=== PATIENT | female | born 1945 | race Caucasian/White ===

== ENCOUNTER 2017-07-18 11:55 | Day surgery (SDC) | payer MEDICARE ==
[2017-07-17 15:38] VITALS: BMI 28.9
[2017-07-18] MEDS ORDERED: Midazolam HCl 2 mg/2 ml Vial ONE (13:36)
[2017-07-18] MEDS ORDERED: Gadobenate Dimeglumine 529 MG/1 ML (20ML VIAL) ONE (14:35)
[2017-07-18] MEDS ORDERED: Fentanyl 100 MCG/2 ML VIAL ONE (15:55)
--- NOTE | 2017-07-18 16:00 | MRI ---
MRI LUMBAR SPINE WITH AND WITHOUT GADOLINIUM CONTRAST 07/18/17 HISTORY: Low back pain. Worsening right leg radiculopathy. Prior surgery. FINDINGS: The conus medullaris has a normal appearance. There is desiccation of all of the intervertebral discs . T12-L1, L1-2, L2-3: There is minimal disc bulge. Osteophytosis involves each facet. The central canal and neural foramina are patent. L3-4: Minimal disc bulge is present. The thecal sac remains patent. There is mild stenosis of each ne ural foramen. L4-5: Disc space narrowing and minimal degenerative spondylolisthesis are apparent. Posterior disc bu lge, along with facet joint hypertrophy and ligamentous thickening, result in moderate stenosis of th e central canal and each neural foramen, right greater than left. L5-S1: Minimal disc bulge is present. Osteophytosis involves the facet. There is mild stenosis of the left neural foramen. IMPRESSION: Multilevel degenerative changes as detailed above, most pronounced at the L4-5 level. Stenosis is gre atest at the right neural foramen. Clinical correlation regarding the L4 dermatome is required. POS: YOEL
== END 2017-07-18 17:07 | disposition home or self-care (01) ==
LOC: SDC/OP 11:55
PROVIDERS: ATTEND Surgery
DX: M54.5 Low back pain (principal); Z88.5 Allergy status to narcotic agent; Z88.8 Allergy status to other drugs, medicaments and biological substances; Z91.013 Allergy to seafood; Z88.1 Allergy status to other antibiotic agents; Z98.890 Other specified postprocedural states
CPT/HCPCS: 36415; 72158; 82565; 96374; A9579; J2250; J3010

== ENCOUNTER 2017-11-10 10:54 | Outpatient (CLI) | payer MEDICARE ==
[2017-11-10 11:49] LABS: #Eosinphils 0.2 thou/uL (0.0-0.7); #Lymphocytes 2.8 thou/uL (1.20-3.40); #Monocytes 0.4 thou/uL (0.11-0.59); #Neutrophils 7.8 thou/uL (1.40-6.50); %Basophils 0.3 % (0.0-1.0); %Eosinophils 1.4 % (0.0-10.0); %Lymphocytes 24.9 % (21.0-51.0); %Monocytes 3.8 % (0.0-10.0); %Neutrophils 69.6 % (42.0-75.0); Hemoglobin 14.9 g/dL (12.0-16.0); Mean Corpuscular HGB CONC 32.3 g/dL (32.0-36.0); Mean Corpuscular Hemoglobin 27.1 pg (27.0-31.0); Mean Corpuscular Volume 83.7 fl (81.0-99.0); Mean Platelet Volume 8.2 fL (7.4-10.4); Platelet Count 342 thou/uL (130-400); RBC Distribution Width 12.2 % (11.5-14.5); White Blood Cell (WBC) Count 11.2 thou/uL (4.8-10.8)
[2017-11-10 11:56] LABS: INR-International Normal Ratio 1.1; PTT 36.3 SEC (22.9-36.1); Prothrombin Time 13.9 SEC (12.0-14.7)
[2017-11-10 12:12] LABS: Anion Gap 14 mmol/L (10-20); BUN (Urea Nitrogen) 11 mg/dL (9.8-20.1); Calc. Creatinine Clearance 0 mL/min (70-130); Carbon Dioxide 26 mmol/L (23-31); Chloride 100 mmol/L (98-107); Estimated GFR-MDRD 56; Glucose 134 mg/dL (83-110); Potassium 3.7 mmol/L (3.5-5.1); Sodium 136 mmol/L (136-145)
== END 2017-11-10 10:55 | disposition home or self-care (01) ==
LOC: LABBT 10:54
PROVIDERS: ATTEND Surgery
DX: Z01.818 Encounter for other preprocedural examination (principal); M48.061 Spinal stenosis, lumbar region without neurogenic claudication; M51.16 Intervertebral disc disorders with radiculopathy, lumbar region
CPT/HCPCS: 80048; 85025; 85610; 85730; 93005; 93010

== ENCOUNTER 2017-11-14 10:57 | Day surgery (SDC) | payer MEDICARE, OTHER ==
[2017-11-10 11:27] VITALS: BMI 27.4
[2017-11-14] MEDS ORDERED: Levofloxacin 500 mg/D5W 100 ml Premix Bag ONE (11:42)
[2017-11-14] MEDS ORDERED: Clindamycin/D5W 900 mg/50 ml Premix Bag ONE (11:42)
[2017-11-14] MEDS ORDERED: Bacitracin Zinc Ointment 30 gm TUBE ONE (13:52)
[2017-11-14] MEDS ORDERED: Sodium Chloride 0.9% 10 ML ONE (13:52)
[2017-11-14] MEDS ORDERED: Thrombin 5000 UNITS/5 ML VIAL ONE (13:52)
[2017-11-14] MEDS ORDERED: Fentanyl 100 MCG/2 ML VIAL ONE ×4 (14:01→17:17)
[2017-11-14] MEDS ORDERED: Meperidine HCl/PF 25 MG/ML VIAL SLOW IVP PRN (15:32)
[2017-11-14] MEDS ORDERED: Promethazine HCl 25 MG/ML VIAL SLOW IVP PRN (15:32)
[2017-11-14] MEDS ORDERED: Ondansetron HCl/PF 4 MG/2 ML Vial IVP PRN (15:32)
--- NOTE | 2017-11-14 16:01 | OP ---
OR: 12 WOUND TYPE: Type 1 wound. SURGEON: Adi Chapin M.D. MEDICAL COMMUNICATION SPECIALIST: Nitesh Hill PA-C. PREPROCEDURE DIAGNOSES: Recurrent lumbar stenosis with history of L4-L5 laminectomy, now with L3-L4 and L4-L5 stenosis with low back and leg pain. POSTPROCEDURE DIAGNOSES: Recurrent lumbar stenosis with history of L4-L5 laminectomy, now with L3-L4 and L4-L5 stenosis with low back and leg pain. PROCEDURES PERFORMED: 1. L3-L4 laminectomy, partial facetectomy, and foraminotomies. 2. Bilateral revision L4-L5 hemilaminotomies, foraminotomies and partial facetectomies with disk spa ce exploration, right L4-L5. DESCRIPTION OF PROCEDURE: After informed consent was obtained from the patient, the patient brought to OR 12. Proper patient pause and the identification was carried out. The patient was positioned p mai on the OR table and all appropriate points were padded. We identified the L3, L4, L5 dorsal spi alfredo and lamina. This region was sterilely cleansed, prepared, and draped. Proper patient pause and identification was carried out. The wound was then opened in a combination of sharp column monopolar and blunt dissection. The L3, L4, L5 dorsal spines lamina were exposed. Exuberant scar tissue was identified in the L4-L5 segment. As expected, we had excellent exposure. However, an L3, L4, L3-L4 laminectomies, partial facetectomies and foraminotomies were performed and bilateral revision L4-L5 h emilaminotomies, foraminotomies with exploration of the disk space on the right side L4-L5 was perfor med. However, further we had achieved adequate decompression of the L4 and L5 nerve roots and did no t need to remove any disk material. We were pleased with our decompression and we had ample freedom of the L3, L4, L5 nerve roots bilaterally and the spinal canal and in the common dural tube. Copious irrigation occurred throughout Hemostasis was maximized. The wound was copiously irrigated and clos ed in anatomic layers. The patient then emerged from anesthesia.
[2017-11-14] MEDS ORDERED: PROPOFOL 200 MG/20 ML VIAL ONE (16:08)
[2017-11-14] MEDS ORDERED: Ondansetron HCl/PF 4 MG/2 ML Vial ONE (16:08)
[2017-11-14] MEDS ORDERED: PHENYLEPHRINE-NS 100 MCG/ML 10 ML SYRINGE ONE (16:08)
[2017-11-14] MEDS ORDERED: Lidocaine 1% PF 5 ML VIAL ONE (16:08)
[2017-11-14] MEDS ORDERED: Glycopyrrolate 0.2 MG/ML 5 ML SYRINGE ONE (16:08)
[2017-11-14] MEDS ORDERED: Dexamethasone 20 MG/5 ML VIAL ONE (16:08)
[2017-11-14] MEDS ORDERED: Morphine 4 MG/ML VIAL SLOW IVP PRN (16:17)
[2017-11-14] MEDS ORDERED: Fleet Enema 133 ML BOT PR PRN (16:17)
[2017-11-14] MEDS ORDERED: Mag-Al 1200 mg/1200 mg/30 ML UDCUP PO PRN (16:17)
[2017-11-14] MEDS ORDERED: Acetaminophen 325 MG TAB PO PRN (16:17)
[2017-11-14] MEDS ORDERED: Promethazine HCl 25 MG/ML VIAL IM PRN (16:17)
[2017-11-14] MEDS ORDERED: tiZANidine HCl 4 MG TAB PO PRN (16:17)
[2017-11-14] MEDS ORDERED: Bisacodyl 10 MG SUPP PR PRN (16:17)
[2017-11-14] MEDS ORDERED: traMADol HCl 50 MG TAB PO PRN (16:17)
[2017-11-14] MEDS ORDERED: Milk Of Magnesia 30 ML UDCUP PO PRN (16:17)
[2017-11-14] MEDS ORDERED: Polyethylene Glycol OPTH DROP 15 ML BOT EA EYE PRN (16:21)
[2017-11-14] MEDS ORDERED: fentaNYL 50 mcg/hour Patch TD SCH (16:30)
[2017-11-14] MEDS: Sodium Chloride 0.9% 1,000 ML IV SCH (18:17)
[2017-11-14] MEDS: Ursodiol 300 MG CAP PO SCH (18:17)
[2017-11-14] MEDS: HYDROcodone/Acetaminophen 7.5/325 mg Tablet PO PRN (20:55)
[2017-11-15] MEDS: HYDROcodone/Acetaminophen 7.5/325 mg Tablet PO PRN ×2 (00:51→08:20)
[2017-11-15] MEDS: Sodium Chloride 0.9% 1,000 ML IV SCH (05:09)
[2017-11-15] MEDS ORDERED: Levothyroxine Sodium 112 MCG TAB PO SCH (06:00)
[2017-11-15] MEDS ORDERED: Levothyroxine Sodium 25 MCG TAB PO SCH (06:00)
[2017-11-15 08:52] VITALS: TEMP 97.8
[2017-11-15] MEDS ORDERED: Valsartan 80 MG TAB PO SCH (09:00)
[2017-11-15] MEDS ORDERED: Non-Formulary Item 1 EACH (Levothyroxine Sodium [Synthroid] 137 MCG) PO SCH (09:00)
[2017-11-15] MEDS ORDERED: Amlodipine 10 MG TAB PO SCH (09:00)
[2017-11-15] MEDS: Ursodiol 300 MG CAP PO SCH (09:00)
[2017-11-15 10:27] VITALS: BP 105/65
--- NOTE | 2017-11-15 11:05 | DIS ---
DATE OF ADMISSION: 11/14/2017 DATE OF DISCHARGE: 11/15/2017 This is Nitesh Hill PA-C dictating for Dr. Adi Chapin. DISCHARGE DIAGNOSES: 1. Lumbar spinal stenosis. 2. Low back pain with lumbar radiculopathy. HOSPITAL COURSE: Ms. Garber was admitted on 11/14/2017 to undergo L3-L4 laminectomy with L4-L5 revisi on bilateral hemilaminotomies, foraminotomies with Dr. Chapin. The patient tolerated the procedure w ell, and it was without complication. She stayed one overnight and her pain was well controlled. Po stoperatively, the patient met criteria for discharge and at the time of discharge, the patient was p leased with her outcome postoperatively. Appropriate outpatient followup appointments were scheduled and patient education was given. She understood to call the office with any additional questions or concerns, otherwise. She is ready for dismissal today.
== END 2017-11-15 10:25 | disposition home or self-care (01) ==
LOC: SDC 10:57 → SURG A 16:17 → SDC 11-15 10:25
PROVIDERS: ATTEND Surgery
PROC: 01NB0ZZ Release Lumbar Nerve, Open Approach (ICD-10-PCS; principal; 2017-11-14)
DX: M48.061 Spinal stenosis, lumbar region without neurogenic claudication (principal); Z88.1 Allergy status to other antibiotic agents; Z88.5 Allergy status to narcotic agent; Z88.8 Allergy status to other drugs, medicaments and biological substances; Z79.899 Other long term (current) drug therapy
CPT/HCPCS: 76001; 96374; A4216; J0131; J1100; J1956; J2001; J2270; J2405; J2704; J3010; J3370; J3490

== ENCOUNTER 2018-10-10 21:14 | Emergency (ER) | payer MEDICARE ==
[2018-10-10] MEDS ORDERED: Morphine 4 MG/ML VIAL ONE (23:10)
== END 2018-10-10 23:39 | disposition home or self-care (01) ==
LOC: ERS 21:14
DX: G89.29 Other chronic pain (principal); M54.5 Low back pain; F32.9 Major depressive disorder, single episode, unspecified; I10 Essential (primary) hypertension; Z79.899 Other long term (current) drug therapy
CPT/HCPCS: 96372; J2270

== ENCOUNTER 2018-11-14 18:52 | Emergency (ER) | payer MEDICARE ==
[2018-11-14] MEDS ORDERED: Morphine 4 MG/ML VIAL ONE (19:46)
[2018-11-14] MEDS ORDERED: Ketorolac Tromethamine 30 MG/ML VIAL ONE (19:46)
== END 2018-11-14 20:35 | disposition home or self-care (01) ==
LOC: ERS 18:52
DX: M54.5 Low back pain (principal); G89.29 Other chronic pain; F32.9 Major depressive disorder, single episode, unspecified; I10 Essential (primary) hypertension; Z79.899 Other long term (current) drug therapy
CPT/HCPCS: 96372; J1885; J2270

== ENCOUNTER 2018-12-21 12:10 | Day surgery (SDC) | payer MEDICARE ==
[2018-12-07 09:10] VITALS: BMI 27.8
[2018-12-21] MEDS ORDERED: Fentanyl 100 MCG/2 ML VIAL ONE ×2 (14:26→15:31)
--- NOTE | 2018-12-21 17:10 | MRI ---
MRI LUMBAR SPINE WITH AND WITHOUT CONTRAST: Date: 12/21/18 INDICATION: History of spinal stenosis and spinal surgery. Back and bilateral leg pain with numbness. CONTRAST: 15 mL MultiHance. COMPARISON: Prior MRI lumbar spine dated 07/18/17. FINDINGS: Since the comparison examination, there has been interval performance of laminectomy at L4 and L5. Th ere is some mild residual T2 hyperintensity within the paraspinal musculature near this region. No la rge drainable fluid collection is grossly evident. There is some mild enhancing scar overlying the la minectomy sites. Visualized retroperitoneum and paravertebral soft tissues appear within normal limits. Conus is seen to terminate at T12-L1. There is Grade I anterolisthesis of L4 on L5 which is stable. At L5-S1, there is moderate left and mild right facet joint degenerative change that is stable to the prior exam. There is a mild broad based bulge. There is mild left neural foraminal narrowing, which is stable. At L4-5, there is a residual broad based bulge with severe facet joint degenerative change. There is improvement in the central canal narrowing due to the laminectomy at L4-5. The loss of disc space hei ght in addition to the residual bulge and facet hypertrophy induces moderate bilateral neural foramin al narrowing which is stable. At L3-4, there is a broad based bulge and facet hypertrophy inducing mild bilateral neural foraminal narrowing. This is stable to the prior exam. At L2-3, there is a broad based bulge and facet hypertrophy, but no appreciable central canal or neur al foraminal narrowing. At L1-2, there is no appreciable central canal or neural foraminal narrowing. There is a mild broad b ased bulge. At T12-L1, there is no appreciable central canal or neural foraminal narrowing. No suspicious enhance ment is demonstrated. IMPRESSION: 1. Interval postsurgical change of laminectomies at L4 and L5 with improvement in the central canal narrowing seen at L4-5. There is residual moderate neural foraminal narrowing at L4-5 that is stable. 2. Stable left L5-S1 mild neural foraminal narrowing. POS: REILLY
== END 2018-12-21 16:35 | disposition home or self-care (01) ==
LOC: SDC/OP 12:10
PROVIDERS: ATTEND Nurse Practitioner Family
DX: M48.061 Spinal stenosis, lumbar region without neurogenic claudication (principal); M48.07 Spinal stenosis, lumbosacral region; Z88.5 Allergy status to narcotic agent; Z91.018 Allergy to other foods; Z88.1 Allergy status to other antibiotic agents; Z88.8 Allergy status to other drugs, medicaments and biological substances; Z79.891 Long term (current) use of opiate analgesic; Z79.899 Other long term (current) drug therapy
CPT/HCPCS: 72158; 82565; J3010

== ENCOUNTER 2019-04-07 19:39 | Emergency (ER) | payer MEDICARE ==
[2019-04-07] MEDS ORDERED: Ketorolac Tromethamine 60 MG/2 ML VIAL ONE (20:16)
== END 2019-04-07 21:45 | disposition home or self-care (01) ==
LOC: ERS 19:39
DX: R51 Headache (principal); M54.5 Low back pain; I10 Essential (primary) hypertension; F32.9 Major depressive disorder, single episode, unspecified; Z79.899 Other long term (current) drug therapy
CPT/HCPCS: 96372; 99283; J1885

== ENCOUNTER 2019-05-30 09:23 | Outpatient (CLI) | payer MEDICARE ==
--- NOTE | 2019-05-30 11:07 | ULT ---
ABDOMINAL ULTRASOUND: HISTORY: Right upper quadrant pain. Fatty liver. TECHNIQUE: Real-time imaging of the upper abdomen was performed. FINDINGS: The gallbladder has been removed. The common duct is dilated and measures in the 8 to 9 mm range. Thi s may be on the basis of the cholecystectomy. There are fatty changes of the liver, which measures ap proximately 16.5 cm in size. The spleen measures 8.9 cm. The right and left kidneys are within normal limits in size and not obstructed. The left kidney has a somewhat lobulated contour. The pancreas is partially obscured. The abdominal aorta shows atherosclerotic change. No aneurysm. Th e IVC region is unremarkable. IMPRESSION: 1. Increased echogenicity to the liver, compatible with fatty change. 2. Post cholecystectomy change. The common duct is mildly dilated, in the 8 to 9 mm range. This is pr obably on the basis of the cholecystectomy. POS: TPC
== END 2019-05-30 09:24 | disposition home or self-care (01) ==
LOC: ULT 09:23
PROVIDERS: ATTEND Physician Assistant Medical
DX: K58.9 Irritable bowel syndrome, unspecified (principal); K76.0 Fatty (change of) liver, not elsewhere classified; R10.11 Right upper quadrant pain; K74.3 Primary biliary cirrhosis; K21.9 Gastro-esophageal reflux disease without esophagitis; E55.9 Vitamin D deficiency, unspecified; K83.8 Other specified diseases of biliary tract; K76.89 Other specified diseases of liver; Z90.49 Acquired absence of other specified parts of digestive tract
CPT/HCPCS: 93975

== ENCOUNTER 2020-07-16 10:09 | Outpatient (CLI) | payer MEDICARE ==
[2020-07-16 23:05] LABS: SARS-CoV-2 PCR by NAA Not Detected (NotDetected)
== END 2020-07-16 10:10 | disposition home or self-care (01) ==
LOC: LABBT 10:09
PROVIDERS: ATTEND Anesthesiology Pain Medicine
DX: Z01.812 Encounter for preprocedural laboratory examination (principal); Z20.822 Contact with and (suspected) exposure to COVID-19
CPT/HCPCS: U0003; U0005; 87635

== ENCOUNTER 2020-07-20 09:53 | Day surgery (SDC) | payer MEDICARE ==
[2020-07-16 11:00] VITALS: BMI 26.9
[2020-07-20] MEDS ORDERED: PHENYLEPHRINE-NS 100 MCG/ML 10 ML SYRINGE ONE (10:48)
[2020-07-20] MEDS ORDERED: Ondansetron PF 4 MG/2 ML Vial ONE (10:48)
[2020-07-20] MEDS ORDERED: Calcium Chloride 1 GM/10 ML Abboject SYRINGE ONE (10:48)
[2020-07-20] MEDS ORDERED: PROPOFOL 200 MG/20 ML VIAL ONE (10:48)
[2020-07-20] MEDS ORDERED: Lidocaine 1% PF 5 ML VIAL ONE (10:48)
[2020-07-20] MEDS ORDERED: ePHEDrine 50 MG/ML VIAL ONE (10:48)
[2020-07-20] MEDS ORDERED: Midazolam HCl 2 mg/2 ml Vial ONE (11:30)
--- NOTE | 2020-07-20 13:35 | MRI ---
MRI CERVICAL SPINE WITHOUT CONTRAST: Date: 07/20/2020 INDICATION: Neck pain with radiculopathy. FINDINGS: Cervical vertebra maintain height and alignment. Vertebral body signal is normal. Loss of disc space at C4-5 and C5-6. Mild to moderate spurring is seen anteriorly from these vertebra. No significant disc bulge or spondylosis seen at C2-3 or C3-4. At C4-5, there is posterior disc bulge and spondylosis which is prominent centrally and to the right, mildly compressing the anterior cord. This displaces the traversing right C6 nerve root. There is ri ght foraminal stenosis due to this hypertrophic change. C5-C6: Mild disc bulge and spondylosis is seen, more prominent to the right of midline with mild cor d impingement. Disc osteophyte complex contacts the anterior cord to the right of midline. No signifi cant foraminal stenosis identified. C6-7: Mild disc bulge and spondylosis efface the anterior subarachnoid space. No cord impingement or cervical canal stenosis. Cervical cord signal appears normally maintained. IMPRESSION: 1. Prominent disc bulge and spondylytic change at C4-5 produce mild cord compression and right latrice inal stenosis as described above. 2. Disc bulge and spondylitic changes abut the cord to the right of midline at C5-6 as described abo ve. POS: AGW
== END 2020-07-20 14:20 | disposition home or self-care (01) ==
LOC: SDC/OP 09:53
PROVIDERS: ATTEND Anesthesiology Pain Medicine
DX: M47.22 Other spondylosis with radiculopathy, cervical region (principal); M47.12 Other spondylosis with myelopathy, cervical region; M48.061 Spinal stenosis, lumbar region without neurogenic claudication; M47.816 Spondylosis without myelopathy or radiculopathy, lumbar region; F40.240 Claustrophobia; I10 Essential (primary) hypertension; E89.0 Postprocedural hypothyroidism; G43.909 Migraine, unspecified, not intractable, without status migrainosus; E07.9 Disorder of thyroid, unspecified; Z79.82 Long term (current) use of aspirin; Z79.899 Other long term (current) drug therapy; Z88.1 Allergy status to other antibiotic agents; Z88.5 Allergy status to narcotic agent; Z88.8 Allergy status to other drugs, medicaments and biological substances; Z91.013 Allergy to seafood; Z91.048 Other nonmedicinal substance allergy status
CPT/HCPCS: 72141; J2250; J2405; J2704; J3490

== ENCOUNTER 2021-12-20 10:00 | Outpatient (CLI) | payer MEDICARE | END 2021-12-20 10:01 | disposition home or self-care (01) | LOC: ULT 10:00 | PROVIDERS: ATTEND Physician Assistant Medical | DX: K21.9 Gastro-esophageal reflux disease without esophagitis (principal); K74.3 Primary biliary cirrhosis; K58.9 Irritable bowel syndrome, unspecified | CPT/HCPCS: 76705 ==

== ENCOUNTER 2024-03-14 14:38 | Outpatient (CLI) | payer OTHER | END 2024-03-14 14:39 | disposition home or self-care (01) | LOC: BICMAMMO 14:38 | PROVIDERS: ATTEND Internal Medicine | DX: M85.851 Other specified disorders of bone density and structure, right thigh (principal); M85.852 Other specified disorders of bone density and structure, left thigh; M81.0 Age-related osteoporosis without current pathological fracture | CPT/HCPCS: 77080 ==

== ENCOUNTER 2024-06-13 07:42 | Outpatient (CLI) | payer OTHER | END 2024-06-13 07:43 | disposition home or self-care (01) | LOC: ULT 07:42 | PROVIDERS: ATTEND Internal Medicine Gastroenterology | DX: K76.0 Fatty (change of) liver, not elsewhere classified (principal); K59.03 Drug induced constipation; K74.3 Primary biliary cirrhosis; K21.9 Gastro-esophageal reflux disease without esophagitis; E55.9 Vitamin D deficiency, unspecified; M35.00 Sjogren syndrome, unspecified; R93.2 Abnormal findings on diagnostic imaging of liver and biliary tract; Z90.49 Acquired absence of other specified parts of digestive tract | CPT/HCPCS: 76700 ==